=== PATIENT | male | born 1980 | race Caucasian/White ===

== ENCOUNTER 2025-05-24 21:12 | Inpatient (IN) | payer OTHER ==
[2025-05-24 21:41] VITALS: BMI 32.3
[2025-05-24] MEDS ORDERED: IBUPROFEN 400 MG TABLET (FP) PO PRN (23:24)
[2025-05-24] MEDS ORDERED: guaiFENesin 600 MG TABLET.ER (FP) PO PRN (23:24)
[2025-05-24] MEDS ORDERED: BENZONATATE 200 MG CAPSULE PO PRN (23:24)
[2025-05-24] MEDS ORDERED: ACETAMINOPHEN 325 MG TABLET (FP) PO PRN (23:24)
[2025-05-24] MEDS ORDERED: POLYETHYLENE GLYCOL (HEALTHYLAX) 3350 17 GM PACKET PO PRN (23:24)
[2025-05-24] MEDS ORDERED: DICYCLOMINE HCL 10 MG CAPSULE PO PRN (23:24)
[2025-05-24] MEDS ORDERED: NALOXONE (NARCAN) HCL 4 MG/0.1 ML SPRAY NS PRN (23:24)
[2025-05-24] MEDS ORDERED: BISMUTH SUBSALICYLATE 524 MG/30 ML PO PRN (23:24)
[2025-05-24] MEDS ORDERED: LOPERAMIDE HCL 2 MG CAPSULE PO PRN (23:24)
[2025-05-24] MEDS ORDERED: ONDANSETRON *ODT* 4 MG TABLET SL PRN (23:24)
[2025-05-24] MEDS ORDERED: MAGNESIUM HYDROX 2400MG/30ML ORAL SUSPENSION 30 ML CUP PO PRN (23:24)
[2025-05-24] MEDS ORDERED: BENZOCAINE/MENTHOL (CHLORASEPTIC ) LOZENGE MM PRN (23:24)
[2025-05-24] MEDS ORDERED: MAG HYDROX/AL HYDROX/SIMETH 30 ML UNIT-DOSE CUP PO PRN (23:24)
[2025-05-25 10:31] LABS: MCHC 32.1 g/dl (32.3-36.5); MEAN CELL VOLUME 98.1 fl (79.0-92.2); MEAN PLT VOLUME 11.4 fl (9.4-12.4); RDW 15.1 % (12.1-15.9)
[2025-05-25] MEDS: levETIRAcetam 500 MG TABLET (FP) PO SCH (10:33)
[2025-05-25] MEDS: PRENATAL VITAMINS W/ FOLIC ACID TABLET (FP) PO SCH (10:33)
[2025-05-25 12:07] LABS: ALK PHOS 98 U/L (40-150); CO2 24 mmol/L (21-32); GLUCOSE,RANDOM 135 mg/dL (74-106); TOT PROT 6.2 g/dl (6.4-8.2)
[2025-05-25 12:08] LABS: CREATININE 0.62 mg/dL (0.55-1.3); SGOT/AST 50 U/L (5-34); SGPT/ALT 36 U/L (0-55)
[2025-05-25 12:09] LABS: SYPHILIS W/ RPR CONF REACTIVE (NONREACTIVE)
[2025-05-25 13:22] LABS: RPR REFLEX REACTIVE 1:1 (NONREACTIVE)
[2025-05-25] MEDS: METHOCARBAMOL 500 MG TABLET PO PRN (17:23)
[2025-05-25] MEDS: THIAMINE 100 MG TABLET PO SCH (22:05)
[2025-05-25] MEDS: MELATONIN 5 MG TABLETS PO SCH (22:05)
[2025-05-25] MEDS: SUVOREXANT 10 MG TABLET PO PRN (22:06)
[2025-05-26] MEDS: PENICILLIN G BENZATHINE 2,400,000 UNIT/4 ML PFS IM ONE (15:54)
[2025-05-26] MEDS: IBUPROFEN 600 MG TABLET (FP) PO PRN (17:10)
[2025-05-27] MEDS: hydrOXYzine PAMOATE 25 MG CAPSULE (FP) PO PRN (20:36)
[2025-05-28] MEDS: amLODIPine BESYLATE 10 MG TABLET (FP) PO SCH (11:39)
[2025-05-28] MEDS: MELATONIN 5 MG TABLETS PO SCH (22:12)
[2025-05-29 12:39] VITALS: RESP 17
[2025-05-29 17:27] VITALS: BP 155/96; PULSE 74; TEMP 99.1
== END 2025-05-29 17:50 | disposition other institution (70) | DRG 774 ==
LOC: YASAS 21:12 → Y6N 23:46
PROVIDERS: ADMIT Neuromusculoskeletal Medicine & OMM; ATTEND Allergy & Immunology
PROC: HZ2ZZZZ Detoxification Services for Substance Abuse Treatment (ICD-10-PCS; principal; 2025-05-24)
DX: F10.230 Alcohol dependence with withdrawal, uncomplicated (principal); F14.20 Cocaine dependence, uncomplicated; F12.20 Cannabis dependence, uncomplicated; F17.210 Nicotine dependence, cigarettes, uncomplicated; F25.9 Schizoaffective disorder, unspecified; F10.280 Alcohol dependence with alcohol-induced anxiety disorder; F10.259 Alcohol dependence with alcohol-induced psychotic disorder, unspecified; F41.9 Anxiety disorder, unspecified; F32.A Depression, unspecified; I11.0 Hypertensive heart disease with heart failure; I50.9 Heart failure, unspecified; Z59.00 Homelessness unspecified
CPT/HCPCS: 36415; 80053; 80307; 85027; 86593; 86780; 93005; 93010

== ENCOUNTER 2025-05-29 18:02 | Inpatient (IN) | payer OTHER ==
[2025-05-29 18:15] VITALS: BP 132/87; PULSE 78; RESP 16; TEMP 96.8
== END 2025-05-29 20:05 | disposition left against medical advice (07) | DRG 770 ==
LOC: YASAS 18:02 → Y3NR 18:03
PROVIDERS: ADMIT Allergy & Immunology; ATTEND Psychiatry & Neurology Pain Medicine
PROC: HZ42ZZZ Group Counseling for Substance Abuse Treatment, Cognitive-Behavioral (ICD-10-PCS; principal; 2025-05-29)
DX: F10.20 Alcohol dependence, uncomplicated (principal)